=== PATIENT | female | born 1930 | race Caucasian/White ===

== ENCOUNTER 2019-01-20 09:33 | Emergency (ER) | payer MEDICARE, MEDICAID ==
[~2019-01-20] VITALS: Ht 162.6 cm; Wt 84.2 kg
[~2019-01-20 09:33] MED LIST: CHOL100046 PO; MAGN500C16 PO; RIVA15TA PO; VITA100D6 PO
[2019-01-20 09:40] VITALS: BP 136/79
[2019-01-20] MEDS ORDERED: AMOX-419 PO (09:55)
== END 2019-01-20 10:15 | disposition home or self-care (01) ==
LOC: ER 09:34
DX: Z98.890 Other specified postprocedural states (principal); Z79.2 Long term (current) use of antibiotics; Z79.899 Other long term (current) drug therapy
CPT/HCPCS: 99284